=== PATIENT | female | born 1985 | race Caucasian/White ===

== ENCOUNTER 2021-04-15 11:55 | Outpatient (RCR) | payer BC, SELFPAY ==
[2021-04-15 12:26] LABS: Basophils Percent Auto 0.3 % (0.2-1.2); Eosinophils Absolute Auto 0.2 K/mm3 (0-0.3); Eosinophils Percent Auto 1.7 % (0-4.4); Hematocrit 34.4 % (37.0-47.0); Hemoglobin 11.2 g/dL (12.0-15.0); Immature Granulocyte Absolute 0.03 K/mm3 (0.00-0.031); Immature Granulocyte Percent A 0.3 % (0-0.5); Lymphocytes Absolute Auto 2.01 K/mm3 (0.9-3.2); Lymphocytes Percent Auto 21.8 % (18.3-44.2); Mean Corpuscular HGB Conc 32.6 g/dl (32-36); Mean Corpuscular Hemoglobin 29.7 pg (26-34); Mean Corpuscular Volume 91.2 fl (80-100); Mean Platelet Volume 10.6 fl (7.4-10.4); Monocytes Absolute Auto 0.7 K/mm3 (0.1-0.6); Monocytes Percent Auto 7.3 % (2.6-8.5); Neutrophils Absolute Auto 6.3 K/mm3 (1.3-6.7); Neutrophils Percent Auto 68.6 % (45.5-73.1); Platelet Count Result 177 k/mm3 (150-375); Red Blood Count 3.77 M/mm3 (4.2-5.4); Red Cell Distribution Width 13.8 % (11.5-14.5); White Blood Count 9.2 K/mm3 (4.5-10.0)
[2021-04-15 13:30] LABS: HIV 1/2 Ab P24 Ag Result Negative (Negative)
[2021-04-15] MEDS: RHO(D) IMMUNE GLOBULIN 300 MCG/2 ML SYRINGE IM (14:39)
[2021-04-16 06:26] LABS: Rapid Plasma Reagin Non-Reactive (NonReactive)
== END 2021-07-14 23:59 | disposition home or self-care (01) ==
LOC: ANHLAB 11:55
PROVIDERS: Visit Provider Obstetrics & Gynecology
DX: Z11.4 Encounter for screening for human immunodeficiency virus [HIV] (principal); Z29.13 Encounter for prophylactic Rho(D) immune globulin; O36.0190 Maternal care for anti-D [Rh] antibodies, unspecified trimester, not applicable or unspecified; Z3A.00 Weeks of gestation of pregnancy not specified
CPT/HCPCS: 36415; 83036; 85025; 85461; 86592; 86703; 90384; 96372; G0432; J2790

== ENCOUNTER 2021-05-08 13:59 | Observation (INO) | payer BC, SELFPAY ==
[2021-05-08] VITALS (28 sets, daily range): BP systolic 62–142; BP diastolic 44–83; PULSE 66–104; RESP 16; TEMP 36.2–36.8; BMI 30.4
--- NOTE | ~2021-05-08 | US_ITS ---
EXAMINATION: US OB follow up DATE: 05/09/2021 07:36 INDICATION: labor, third trimester TECHNIQUE: Real-time ultrasound of the pelvis was performed. The interpreting radiologist was not pre sent for the study. COMPARISON: None. FINDINGS: There is a single living fetus in vertex presentation. The placenta is posterior/fundal. Fe arun cardiac activity and movement are noted. heart rate is 135 beats per minute (bpm). Th e amniotic fluid index is 15.6 cm which is normal. The following biometric data were obtained: Biparietal diameter (BPD): 8.3 cm; head circumference (HC): 31.0 cm; abdominal circumference (AC): 31 .5 cm; femur length (FL): 6.6 cm. These measurements are concordant. Estimated weight is 2529 g +/- 379 g, which correlates with the >97th percentile when 07/01/2021 is used as estimated date of delivery. As single measurements, these parameters are each equal to the following estimated gestational ages w ith ranges of +/- 2 standard deviations: BPD: 33 weeks 4 days +/- 3 weeks 1 days. HC: 34 weeks 4 days +/- 3 weeks 0 days. AC: 35 weeks 3 days +/- 3 weeks 0 days. FL: 34 weeks 1 days +/- 3 weeks 0 days. estimated gestational age based solely on measurements from this exam is 34 weeks 3 days +/- 2 weeks 3 days. IMPRESSION: 1. Single living fetus in vertex presentation. 2. Estimated weight is 2529 g +/- 379 g, which correlates with the >97th percentile when 07/01/19 22 is used as estimated date of delivery. 3. Normal amniotic fluid index. Reviewed, dictated and finalized at location B. [employer] SERVICES ASSOCIATE IMPRESSION: 1. Single living fetus in vertex presentation. 2. Estimated weight is 2529 g +/- 379 g, which correlates with the >97th percentile when 07/01/2021 is used as estimated date of delivery. 3. Normal amniotic fluid index.
[2021-05-08] MEDS: LACTATED RINGERS 1,000 ML 125 ML IV CONT (14:40)
[2021-05-08] MEDS: MAGNESIUM SULF 4 GM/WATER100ML 4 GM/100 ML BAG IVPB (14:40)
--- NOTE | 2021-05-08 14:48 | OBADM ---
This patient, Sue Mtz, admitted to the OB room [facility] Post 116 for observation. Patient/family oriented to hospital policies and general routines including ID bracelet, bed and alarms, visiting hours, pain management, procedures, bathroom and other care routines, personal items, smoking policy, room service/diet, and visiting hours. Patient/Family are encouraged to report perceived risks to care and to ask questions if they do not understand what they are told or what they should do. Pt was seen in office by , SVE was 3cm. Orders received to start magnesium, give steroids, and recheck cervix in one hours.
[2021-05-08] MEDS: BETAMETHASONE SOD PHOS/ACETATE 30 MG/5 ML VIAL 12 MG IM (14:50)
[2021-05-08] MEDS: MAGNESIUM SULF 20GM/WATER500ML 500 ML 50 MG IV CONT (15:07)
--- NOTE | 2021-05-08 15:59 | PC.NURSE ---
3177- called,inquired about labs. Labor labs and Hgb A1C ordered. Fasting and 1hr post prandial BS's
--- NOTE | 2021-05-08 16:14 | PM.IMHP ---
H&P: HPI History of Present Illness Date/Time: 05/08/21 16:14 at 32+3 came in earlier today for NST due to type II DM and was noted to have 6 contractions in 1 hour, but she was not feeling any cramping. She then came to the office and was found to be 3 cm dilated. No bleeding, leaking fluid. Normal movement. She does have h/o spontaneous delivery at 34 weeks. Chief Complaint: labor Review of Systems Review of Systems: All systems reviewed & are unremarkable except as noted in HPI and below PMFSH Past Medical History Medical History Diabetes mellitus diet controlled Vaginal delivery x2 Surgical History Surgical History History of salpingo-oophorectomy 2006, left side Family History Family History Father Hypertension Mother Diabetes mellitus Hypertension Heart problem Grandparent Diabetes mellitus Hypertension Cerebrovascular accident Heart problem Social History Social History Smoking status: Current some day smoker Alcohol intake: former Substance use: never Meds Home Medications and Allergies Home Medications Medication Instructions Recorded Confirmed Type docosahexaenoic acid 200 mg capsule 200 mg PO DAILY 01/23/21 05/08/21 History metformin 500 mg tablet 500 mg PO DAILY #60 tablet 04/24/21 05/08/21 Rx Allergies Allergy/AdvReac Type Severity Reaction Status Date / Time No Known Allergies Allergy Verified 05/08/21 13:23 Vital Signs Vital Signs - 24 hr 05/08/21 14:11 05/08/21 14:16 05/08/21 14:39 Temperature 36.8 C Pulse Rate 104 H 98 85 Respiratory Rate 16 Blood Pressure 135/82 126/74 126/74 05/08/21 14:46 05/08/21 15:01 05/08/21 15:16 Temperature Pulse Rate 97 83 72 Respiratory Rate Blood Pressure 108/60 119/57 L 108/55 L 05/08/21 15:31 05/08/21 15:46 05/08/21 16:01 Temperature Pulse Rate 73 70 71 Respiratory Rate Blood Pressure 110/65 111/54 L 109/55 L Exam Const: General: healthy appearing, no acute distress, alert and awake Resp: Auscultation: clear to auscultation bilaterally Cardio: Rate: regular rate Rhythm: regular rhythm GI: Inspection: non-distended GI Palp: Yes Soft to palpation, No Tenderness to palpation present (GI) and Yes Other GI palpation findings present (gravid) : Manual OB Exam: dilated 3 cm, effaced 25%, station high and other (soft/posterior) Extrem: General: no pedal edema and no calf tenderness Psych: Mental Status: mental status grossly normal Assessment and Plan Assessment and plan (1) labor in third trimester: Code(s): O60.03 - labor without delivery, third trimester Status: Acute Assessment and Plan: Unsure if recent cervical change or not, so to L&D for minimum 24 hours observation to complete steroid course for lung maturity. Start magnesium for tocolysis and consider weaning overnight if contractions not frequent and no cervical change. She is aware if she progresses at all, transfer would be recommended. She would prefer going to [place] if needed since she delivered there before. Start antibiotics for unknwon GBS status and prematurity. status reassuring (2) Diabetes mellitus affecting in third trimester: Code(s): O24.913 - Unspecified diabetes mellitus in , third trimester Status: Acute Assessment and Plan: Metformin 500 mg daily in am started about 2 weeks ago, and blood sugars have been reasonably well controlled (145 or lower postprandial, fastings 80s-100). Sugar control may be more challenging with recent steroids so continue strict diabetic diet, check sugars fasting and 1 hour postprandial
[2021-05-08 16:21] LABS: Glucose Point of Care 174 mg/dl (65-105)
[2021-05-08 16:27] LABS: Basophils Percent Auto 0.3 % (0.2-1.2); Eosinophils Absolute Auto 0.2 K/mm3 (0-0.3); Eosinophils Percent Auto 1.4 % (0-4.4); Hematocrit 33.2 % (37.0-47.0); Hemoglobin 10.9 g/dL (12.0-15.0); Immature Granulocyte Absolute 0.03 K/mm3 (0.00-0.031); Immature Granulocyte Percent A 0.2 % (0-0.5); Lymphocytes Absolute Auto 2.19 K/mm3 (0.9-3.2); Mean Corpuscular HGB Conc 32.8 g/dl (32-36); Mean Corpuscular Hemoglobin 28.4 pg (26-34); Mean Corpuscular Volume 86.5 fl (80-100); Mean Platelet Volume 12.4 fl (7.4-10.4); Monocytes Absolute Auto 0.7 K/mm3 (0.1-0.6); Monocytes Percent Auto 5.4 % (2.6-8.5); Neutrophils Absolute Auto 9.1 K/mm3 (1.3-6.7); Neutrophils Percent Auto 74.7 % (45.5-73.1); Platelet Count Result 174 k/mm3 (150-375); Red Blood Count 3.84 M/mm3 (4.2-5.4); Red Cell Distribution Width 13.7 % (11.5-14.5); White Blood Count 12.2 K/mm3 (4.5-10.0)
--- NOTE | 2021-05-08 16:43 | PC.NURSE ---
called back with antibiotic orders for pt.
[2021-05-08] MEDS: AMPICILLIN 2 GM/NS 100 ML 2 GM/100 ML BAG IVPB (17:14)
[2021-05-08 18:43] LABS: Glucose Point of Care 231 mg/dl (65-105)
[2021-05-08 19:50] LABS: Glucose Point of Care 226 mg/dl (65-105)
[2021-05-08] MEDS: metFORMIN HCL 500 MG TABLET PO (20:16)
[2021-05-08 20:28] LABS: Magnesium 4.1 mg/dL (1.6-2.3)
--- NOTE | 2021-05-08 20:55 | PM.OBPNVD ---
OB - PN: Subj Subjective Date/time seen: 05/08/21 20:55 Called by nurse due to some increase ctx since she has taken over. Patient states not feeling ctx. Reviewed tracing ctx q 7-12, they increased over the past hour, and now spacing. The nurse thought the cervix exam was changing though this is her first exam of the patient. Patient's FS elevated over 200 which secondary to steroids. Metformin pm added. tracing Cat 1. Cervix 3/50/-3. Informed patient her exam is unchanged. Continue plan for Mg until completed steroids. If increase consider Procardia. Patient voiced understanding. OB - PN: Obj Data Labs CBC & Chem 7: 05/08/21 16:09 Labs: Laboratory Results - last 24 hr 05/08/21 05/08/21 05/08/21 16:09 16:09 16:10 WBC 12.2 H RBC 3.84 L Hgb 10.9 L Hct 33.2 L MCV 86.5 MCH 28.4 MCHC 32.8 RDW 13.7 Plt Count 174 MPV 12.4 H Immature Gran % (Auto) 0.2 Neut % (Auto) 74.7 H Lymph % (Auto) 18.0 L [place] % (Auto) 5.4 Eos % (Auto) 1.4 Baso % (Auto) 0.3 Lymph # (Auto) 2.19 [place] # (Auto) 0.7 H Eos # (Auto) 0.2 Baso # (Auto) 0.0 Abs Immat Gran (auto) 0.03 Absolute Neuts (auto) 9.1 H Absolute Nucleated RBC 0.0 Nucleated RBC % 0.0 POC Capillary Glucose 174 H Magnesium Blood Type O Negative Antibody Screen Positive Antibody Identification Passive Due to RH Imm Glob Antigen Identification Cancelled LIN, IgG Interpret Not Performed LIN, Poly Interpret Negative LIN, Complement Interp Not Performed 05/08/21 05/08/21 05/08/21 18:38 19:44 20:05 WBC RBC Hgb Hct MCV MCH MCHC RDW Plt Count MPV Immature Gran % (Auto) Neut % (Auto) Lymph % (Auto) [place] % (Auto) Eos % (Auto) Baso % (Auto) Lymph # (Auto) [place] # (Auto) Eos # (Auto) Baso # (Auto) Abs Immat Gran (auto) Absolute Neuts (auto) Absolute Nucleated RBC Nucleated RBC % POC Capillary Glucose 231 H 226 H Magnesium 4.1 H Blood Type Antibody Screen Antibody Identification Antigen Identification LIN, IgG Interpret LIN, Poly Interpret LIN, Complement Interp OB - PN A/P Time Spent With Patient Time: Total time spent is greater than 50% in coordination of care (as documented) at patient's floor/unit and/or counseling patient:
[2021-05-08] MEDS: AMPICILLIN 1 GM/NS 50 ML 1 GM/50 ML BAG IVPB (21:26)
[2021-05-08 21:33] LABS: Glucose Point of Care 235 mg/dl (65-105)
[2021-05-09] VITALS (8 sets, daily range): BP systolic 102–130; BP diastolic 56–67; PULSE 64–74; TEMP 36.4–37.2
[2021-05-09 00:14] LABS: Glucose Point of Care 171 mg/dl (65-105)
[2021-05-09] MEDS: NICOTINE (*PBKC) 7 MG PATCH 1 PATCH TRANSDERM (00:34)
[2021-05-09] MEDS: MAGNESIUM SULF 20GM/WATER500ML 500 ML 50 MG IV CONT ×2 (01:15→10:55)
[2021-05-09] MEDS: AMPICILLIN 1 GM/NS 50 ML 1 GM/50 ML BAG IVPB ×5 (01:52→17:06)
[2021-05-09] MEDS: LACTATED RINGERS 1,000 ML 125 ML IV CONT (05:38)
[2021-05-09 06:03] LABS: Magnesium 4.9 mg/dL (1.6-2.3)
[2021-05-09 06:22] LABS: Rapid Plasma Reagin Non-Reactive (NonReactive)
[2021-05-09 07:46] LABS: Glucose Point of Care 151 mg/dl (65-105)
[2021-05-09] MEDS: metFORMIN HCL 500 MG TABLET PO (08:27)
[2021-05-09 10:38] LABS: Glucose Point of Care 179 mg/dl (65-105)
--- NOTE | 2021-05-09 10:41 | PM.OBPNVD ---
OB - PN: Subj Subjective Date/time seen: 05/09/21 10:41 She denies complaints. Contractions seem less to her. No spotting. Sasser irreg ctx 5-6/hr mild. OB - PN: Obj Data Labs CBC & Chem 7: 05/08/21 16:09 Labs: Laboratory Results - last 24 hr 05/08/21 05/08/21 05/08/21 16:09 16:09 16:09 WBC 12.2 H RBC 3.84 L Hgb 10.9 L Hct 33.2 L MCV 86.5 MCH 28.4 MCHC 32.8 RDW 13.7 Plt Count 174 MPV 12.4 H Immature Gran % (Auto) 0.2 Neut % (Auto) 74.7 H Lymph % (Auto) 18.0 L [place] % (Auto) 5.4 Eos % (Auto) 1.4 Baso % (Auto) 0.3 Lymph # (Auto) 2.19 [place] # (Auto) 0.7 H Eos # (Auto) 0.2 Baso # (Auto) 0.0 Abs Immat Gran (auto) 0.03 Absolute Neuts (auto) 9.1 H Absolute Nucleated RBC 0.0 Nucleated RBC % 0.0 POC Capillary Glucose Magnesium RPR Non-reactive Blood Type O Negative Antibody Screen Positive Antibody Identification Passive Due to RH Imm Glob Antigen Identification Cancelled LIN, IgG Interpret Not Performed LIN, Poly Interpret Negative LIN, Complement Interp Not Performed 05/08/21 05/08/21 05/08/21 16:10 18:38 19:44 WBC RBC Hgb Hct MCV MCH MCHC RDW Plt Count MPV Immature Gran % (Auto) Neut % (Auto) Lymph % (Auto) [place] % (Auto) Eos % (Auto) Baso % (Auto) Lymph # (Auto) [place] # (Auto) Eos # (Auto) Baso # (Auto) Abs Immat Gran (auto) Absolute Neuts (auto) Absolute Nucleated RBC Nucleated RBC % POC Capillary Glucose 174 H 231 H 226 H Magnesium RPR Blood Type Antibody Screen Antibody Identification Antigen Identification LIN, IgG Interpret LIN, Poly Interpret LIN, Complement Interp 05/08/21 05/08/21 05/09/21 20:05 21:29 00:06 WBC RBC Hgb Hct MCV MCH MCHC RDW Plt Count MPV Immature Gran % (Auto) Neut % (Auto) Lymph % (Auto) [place] % (Auto) Eos % (Auto) Baso % (Auto) Lymph # (Auto) [place] # (Auto) Eos # (Auto) Baso # (Auto) Abs Immat Gran (auto) Absolute Neuts (auto) Absolute Nucleated RBC Nucleated RBC % POC Capillary Glucose 235 H 171 H Magnesium 4.1 H RPR Blood Type Antibody Screen Antibody Identification Antigen Identification LIN, IgG Interpret LIN, Poly Interpret LIN, Complement Interp 05/09/21 05/09/21 05/09/21 05:36 07:43 10:33 WBC RBC Hgb Hct MCV MCH MCHC RDW Plt Count MPV Immature Gran % (Auto) Neut % (Auto) Lymph % (Auto) [place] % (Auto) Eos % (Auto) Baso % (Auto) Lymph # (Auto) [place] # (Auto) Eos # (Auto) Baso # (Auto) Abs Immat Gran (auto) Absolute Neuts (auto) Absolute Nucleated RBC Nucleated RBC % POC Capillary Glucose 151 H 179 H Magnesium 4.9 H RPR Blood Type Antibody Screen Antibody Identification Antigen Identification LIN, IgG Interpret LIN, Poly Interpret LIN, Complement Interp OB - PN A/P Assessment and Plan (1) labor in third trimester: Code(s): O60.03 - labor without delivery, third trimester Status: Acute Assessment and Plan: No cervical change. Will continue with plan for Magnesium until second dose of steroids. Then discontinue. Will trial of procardia and if no cervical change then will allow discharge this pm. She wants to go home this evening. She is aware of her risk of delivery and labor precautions discussed. Mg level normal. (2) Diabetes mellitus affecting in third trimester: Code(s): O24.913 - Unspecified diabetes mellitus in , third trimester Status: Acute Assessment and Plan: Blood sugard increased as expected. Will continue the twice daily dosing of Metformin. Ultrasound results pending. Time Spent With Lamberto
[2021-05-09] MEDS: BETAMETHASONE SOD PHOS/ACETATE 30 MG/5 ML VIAL 12 MG IM (14:36)
[2021-05-09 14:53] LABS: Glucose Point of Care 154 mg/dl (65-105)
[2021-05-09] MEDS: DOCUSATE SODIUM 100 MG CAPSULE PO (17:06)
[2021-05-09 19:12] LABS: Glucose Point of Care 233 mg/dl (65-105)
--- NOTE | 2021-05-09 19:24 | PC.NURSE ---
1910- LM on vm to call hospital with Dr. Nolan 1912- Dr. Nolan returned call- updated on pt status. FHT reviewed. latest blood sugar reviewed- 233. order to d/c pt home on pelvic rest, pre-term labor precautions, pt to call and make appt with Dr. Geiger for next week.
== END 2021-05-09 19:37 | disposition home or self-care (01) ==
PROVIDERS: Admitting Provider Obstetrics & Gynecology; Visit Provider Obstetrics & Gynecology
DX: O60.03 Preterm labor without delivery, third trimester (principal); O24.410 Gestational diabetes mellitus in pregnancy, diet controlled; Z3A.32 32 weeks gestation of pregnancy
CPT/HCPCS: 36415; 76816; 82948; 83735; 85025; 86592; 86850; 86880; 86900; 86901; 86902; 96361; 96365; 96366; 96367; 96372; 96376; A9270; G0378; G0379; J0290; J0702; J3475; J7120

== ENCOUNTER 2021-05-15 10:11 | Outpatient (CLI) | payer BC, SELFPAY ==
[2021-05-15 10:51] LABS: Hematocrit 32.9 % (37.0-47.0); Hemoglobin 10.4 g/dL (12.0-15.0); Mean Corpuscular HGB Conc 31.6 g/dl (32-36); Mean Corpuscular Volume 85.5 fl (80-100); Mean Platelet Volume 12.6 fl (7.4-10.4); Platelet Count Result 134 k/mm3 (150-375); Red Blood Count 3.85 M/mm3 (4.2-5.4); Red Cell Distribution Width 13.6 % (11.5-14.5); White Blood Count 11.3 K/mm3 (4.5-10.0)
[2021-05-15 11:00] LABS: Alanine Aminotransferase 10 U/L (4-35); Albumin Level 3.4 g/dL (3.5-5.1); Alkaline Phosphatase 113 U/L (38-126); Anion Gap 4 mmol/L (8-16); Aspartate Amino Transferase 16 U/L (14-36); Bilirubin,Total 0.3 mg/dL (0.2-1.3); Blood Urea Nitrogen 7 mg/dL (7-17); Calcium 8.9 mg/dL (8.4-10.2); Carbon Dioxide 24 mmol/L (22-30); Chloride 106 mmol/L (98-107); Estimated Glomerular Filt Rate > 60; Glucose 102 mg/dL (65-110); Potassium 4.4 mmol/L (3.4-5.0); Sodium 134 mmol/L (137-145); Uric Acid 3.7 mg/dL (2.5-7.5)
[2021-05-15 13:35] LABS: Collection Time Urine 24 HOURS
[2021-05-15 13:44] LABS: Creatinine Urine 88.9 mg/dL; Patient Weight 150 Lbs; Total Protein Urine Random 59 mg/dL
[2021-05-15 16:09] LABS: Creatinine Clearance Urine 174.2 ml/min (75-125); Total Protein Urine 24 Hr 973 mg/24hr (28-141); Total Volume 24 Hour Urine 1650 ml
== END 2021-05-15 10:12 | disposition home or self-care (01) ==
LOC: ANHLAB 10:14
PROVIDERS: Visit Provider Obstetrics & Gynecology
DX: O13.9 Gestational [pregnancy-induced] hypertension without significant proteinuria, unspecified trimester (principal); R80.9 Proteinuria, unspecified; Z3A.00 Weeks of gestation of pregnancy not specified
CPT/HCPCS: 36415; 80053; 81050; 82575; 84156; 84550; 85027

== ENCOUNTER 2021-05-15 12:45 | Observation (INO) | payer BC, SELFPAY ==
[2021-05-15] MEDS: NIFEdipine 10 MG CAPSULE PO (13:14)
[2021-05-15 15:15] VITALS: BMI 31.8
--- NOTE | 2021-05-20 13:21 | PM.OBTRLD ---
OB - Triage/Final Diagnosis Visit Information Comments/Additional reasons for admission: I have assessed the risk for this patient, Sue Mtz, and determined that she would benefit from observation care. Final Diagnosis (1) labor: Code(s): O60.00 - labor without delivery, unspecified trimester Status: Acute
== END 2021-05-15 16:20 | disposition home or self-care (01) ==
PROVIDERS: Admitting Provider Obstetrics & Gynecology; Visit Provider Obstetrics & Gynecology
DX: O60.03 Preterm labor without delivery, third trimester (principal); Z3A.33 33 weeks gestation of pregnancy
CPT/HCPCS: 36415; 80053; 81050; 82575; 84156; 84550; 85027; A9270; G0378; G0379

== ENCOUNTER 2021-05-16 19:31 | Observation (INO) | payer BC, SELFPAY ==
--- NOTE | ~2021-05-16 | US_ITS ---
EXAMINATION: US OB BPP wo non-stress DATE: 05/17/2021 07:34 INDICATION: Vaginal bleeding. Third trimester. TECHNIQUE: Real-time pelvic ultrasound was performed. COMPARISON: Ultrasound 05/09/2021 FINDINGS: There is a single living fetus in vertex presentation. The placenta is posterior. The visualized por tions of the placenta are normal. heart rate is 152 beats per minute (bpm). The amniotic fluid volume is subjectively normal. Biophysical profile performed by the technologist: breathing (30 sec sustained breathing in 30 minutes): 2 out of 2 movement (3 gross body movements in 30 minutes): 2 out of 2 tone (one episode of juoeafp-toqaawcfb-actzivd limb movement): 2 out of 2 Amniotic fluid pocket (2 cm): 2 out of 2 Total score: 8 out of 8 IMPRESSION: 1. Single living fetus in vertex presentation. 2. Biophysical profile 8 out of 8. Reviewed, dictated and finalized at location A. A OPERATOR
[2021-05-16 19:52] VITALS: BP 146/70; PULSE 65
[2021-05-16 20:00] VITALS: BP 141/73; PULSE 68
[2021-05-16 20:19] VITALS: TEMP 37.1
[2021-05-16 20:29] VITALS: BP 131/64; PULSE 57
[2021-05-16 20:30] VITALS: BP 127/69; PULSE 58
[2021-05-16 20:59] LABS: Glucose Point of Care 71 mg/dl (65-105)
[2021-05-16 22:05] LABS: Glucose Point of Care 97 mg/dl (65-105)
[2021-05-17] VITALS (38 sets, daily range): BP systolic 108–152; BP diastolic 57–79; PULSE 54–102; RESP 18; TEMP 36.6–37; O2SAT 94–100; BMI 32.0
[2021-05-17] MEDS: NIFEdipine 10 MG CAPSULE PO ×2 (00:12→04:21)
--- NOTE | 2021-05-17 03:13 | OBADM ---
This patient, Sue Mtz, admitted to the OB room [facility] for observation. Patient/family oriented to hospital policies and general routines including ID bracelet, bed and alarms, visiting hours, pain management, procedures, bathroom and other care routines, personal items, smoking policy, room service/diet, and visiting hours. Patient/Family are encouraged to report perceived risks to care and to ask questions if they do not understand what they are told or what they should do.
[2021-05-17] MEDS: ACETAMINOPHEN 500 MG TABLET 1000 MG PO (04:54)
[2021-05-17 06:58] LABS: Glucose Point of Care 81 mg/dl (65-105)
[2021-05-17] MEDS: MAGNESIUM SULF 4 GM/WATER100ML 4 GM/100 ML BAG IVPB (09:04)
[2021-05-17] MEDS: LACTATED RINGERS 1,000 ML 75 ML IV CONT (09:05)
--- NOTE | 2021-05-17 09:10 | PM.IMHP ---
H&P: HPI History of Present Illness Date/Time: 05/17/21 09:10 Patient is a 36yo currently 33w4d who presented to L&D last night with complaints of vaginal bleeding and diarrhea. Reported saturation of regular size pad. Bleeding slowed down after arrival to L&D. Patient reports persistent contractions as well, however, unchanged. She has been jerome for past week. She was admitted one week ago for management of possible labor. She received magnesium sulfate and celestone x 2 doses. Cervical exam was approx. 3 cm dilated at time of discharge last week. She was noted to be 4cm dilated during office visit a few days ago. Patient reports increasing headaches. Denies any leakage of fluid. Reports good movement. Patient has a history of labor and delivery at 34 weeks. She also has a history of pregestational Type 2 DM. She takes Metformin daily, however, does not monitor fingersticks consistently. While on L&D overnight, patient was noted to be jerome. She received Procardia 10mg x 2 doses after which contractions spaced out, however, are still occurring intermittently. Bleeding subsided and patient reports minimal amount of dark brown discharge this morning. However, during exam this morning a moderate sized approx. 10cc dark reddish-brown gelatinous clot was evacuated from vagina. EFM overnight showed moderate variability with intermittent periods of minimal variability. Few accelerations were noted, however, no definitive decelerations were noted. Tracing did not meet reactive criteria. A BPP was obtained this morning as soon as possible and was 8/8. When EFM restarted after returning from radiology, a few late decelerations were noted as well as tachycardia to 170s. Decision made to transfer patient for escalating care in the setting of labor and possible abruption. Fasting FS this AM was 81. Two hour postprandial measurement was 165. Chief Complaint: labor Vaginal bleeding Review of Systems Review of Systems: All systems reviewed & are unremarkable except as noted in HPI and below Constitutional: Constitutional: Reports as per HPI, Reports no additional constitutional complaints, Denies chills, Denies fever(s), Denies headache(s) and Denies night sweats Eyes: Eyes: Reports as per HPI and Reports no additional eye complaints ENT: Reports system reviewed and no additional complaints, except as documented, Reports as per HPI, Reports Normal hearing present and Denies headache(s) Cardiovascular: Cardiovascular: Reports as per HPI, Reports no additional cardiovascular complaints, Denies chest pain and Denies dyspnea Respiratory: Respiratory: Reports as per HPI, Reports no additional respiratory complaints, Denies cough and Denies dyspnea Gastrointestinal: Gastrointestinal: Reports as per HPI, Reports no additional gastrointestinal complaints, Denies abdominal pain, Denies change in bowel habits, Denies change in stool character, Denies nausea and Denies vomiting Genitourinary: Genitourinary: Reports no additional female genitourinary complaints, Reports as per HPI, Reports abnormal vaginal bleeding, Denies genital lesions, Denies hot flashes, Denies dyspareunia, Denies pelvic pain, Denies sexual dysfunction, Denies urinary incontinence, Denies vaginal discharge, Denies vaginal dryness and Denies vaginal odor Musculoskeletal: Musculoskeletal: Reports no additional musculoskeletal complaints and Reports as per HPI Integumentary/Breasts: Skin/Breast: Reports system reviewed and no additional complaints, except as docu, Reports as per HPI, Denies breast pain and Denies nipple discharge Neurologic: Reports system reviewed and no additional complaints, except as documented, Reports as per HPI, Reports Normal hearing present and Denies headache(s) Psychiatric: Psychiatric: Reports no additional psychiatric complaints, Reports as per HPI, Denies anxiety and Denies depression Endocrine: Endocrine: Reports no additio
[2021-05-17 09:22] LABS: Glucose Point of Care 165 mg/dl (65-105)
[2021-05-17] MEDS: metFORMIN HCL 500 MG TABLET 1000 MG PO (09:22)
[2021-05-17 09:25] LABS: Basophils Percent Auto 0.2 % (0.2-1.2); Eosinophils Absolute Auto 0.1 K/mm3 (0-0.3); Eosinophils Percent Auto 1.2 % (0-4.4); Hematocrit 28.5 % (37.0-47.0); Hemoglobin 9.3 g/dL (12.0-15.0); Immature Granulocyte Absolute 0.03 K/mm3 (0.00-0.031); Immature Granulocyte Percent A 0.4 % (0-0.5); Lymphocytes Absolute Auto 1.71 K/mm3 (0.9-3.2); Lymphocytes Percent Auto 20.6 % (18.3-44.2); Mean Corpuscular HGB Conc 32.6 g/dl (32-36); Mean Corpuscular Hemoglobin 28.1 pg (26-34); Mean Corpuscular Volume 86.1 fl (80-100); Mean Platelet Volume 12.2 fl (7.4-10.4); Monocytes Absolute Auto 0.5 K/mm3 (0.1-0.6); Monocytes Percent Auto 5.8 % (2.6-8.5); Neutrophils Percent Auto 71.8 % (45.5-73.1); Platelet Count Result 109 k/mm3 (150-375); Red Blood Count 3.31 M/mm3 (4.2-5.4); Red Cell Distribution Width 13.6 % (11.5-14.5); White Blood Count 8.3 K/mm3 (4.5-10.0)
[2021-05-17 09:34] LABS: INR 0.8; Prothrombin Time 11.4 Seconds (11.1-14.7)
[2021-05-17 09:35] LABS: Partial Thromboplastin Time 26.6 SECONDS (22.3-36.8)
[2021-05-17] MEDS: MAGNESIUM SULF 20GM/WATER500ML 500 ML 50 MG IV CONT (09:36)
[2021-05-17 09:38] LABS: D Dimer 1.04 ug/mL (<0.48)
[2021-05-17 09:40] LABS: Fibrinogen 255 mg/dl (215-510)
--- NOTE | 2021-05-17 10:05 | P.PNOB_ITS ---
OB - PN: Subj Subjective Date/time seen: 05/17/21 10:[address] Mcnair MFM with [facility] regarding transferring patient with diagnosis of PTL, suspect abruption. The deceleratons have resolve. Discussed the abruption labs. Cat 2, tracing, mg started. Discussed with him that I feel the patient is clinically stable for transport. She is not actively bleeding. I have discussed the patient with Dr. Roa, staff mortgage assistant and she would rather the patient be transferred for NICU support. OB - PN: Obj Data Labs CBC & Chem 7: 05/17/21 09:06 Labs: Laboratory Results - last 24 hr 05/16/21 05/16/21 05/17/21 20:57 21:56 06:55 WBC RBC Hgb Hct MCV MCH MCHC RDW Plt Count MPV Immature Gran % (Auto) Neut % (Auto) Lymph % (Auto) [place] % (Auto) Eos % (Auto) Baso % (Auto) Lymph # (Auto) [place] # (Auto) Eos # (Auto) Baso # (Auto) Abs Immat Gran (auto) Absolute Neuts (auto) Absolute Nucleated RBC Nucleated RBC % PT INR APTT Fibrinogen D-Dimer POC Capillary Glucose 71 97 81 05/17/21 05/17/21 05/17/21 09:06 09:06 09:18 WBC 8.3 RBC 3.31 L Hgb 9.3 L Hct 28.5 L MCV 86.1 MCH 28.1 MCHC 32.6 RDW 13.6 Plt Count 109 L MPV 12.2 H Immature Gran % (Auto) 0.4 Neut % (Auto) 71.8 Lymph % (Auto) 20.6 [place] % (Auto) 5.8 Eos % (Auto) 1.2 Baso % (Auto) 0.2 Lymph # (Auto) 1.71 [place] # (Auto) 0.5 Eos # (Auto) 0.1 Baso # (Auto) 0.0 Abs Immat Gran (auto) 0.03 Absolute Neuts (auto) 6.0 Absolute Nucleated RBC 0.0 Nucleated RBC % 0.0 PT 11.4 INR 0.8 APTT 26.6 Fibrinogen 255 D-Dimer 1.04 H POC Capillary Glucose 165 H Imaging Radiologist's impression: Impressions Obstetrics US/Biophysical Profile 05/17/21 07:52 IMPRESSION: 1. Single living fetus in vertex presentation. 2. Biophysical profile 8 out of 8. OB - PN A/P Time Spent With Patient Time: Total time spent is greater than 50% in coordination of care (as documented) at patient's floor/unit and/or counseling patient:
--- NOTE | 2021-05-17 10:41 | PM.OBPNVD ---
OB - PN: Subj Subjective Date/time seen: 05/17/21 10:41 I explained to her the diagnosis of labor and abruption and explained that the router operator radial feels that baby would benefit from being delivered in a tertiary facility for NICU support. She understands that she will most likely be delivered when she gets to [facility]. She was informed of risk of distress with her and or baby at any time when there is an abruption,and risk of delivery between getting from one facility to another. tracing currently does not show distress. She is aware of benefit of NICU support and risk and agrees to being transferred. She will go via helicopter. OB - PN: Obj Data Labs CBC & Chem 7: 05/17/21 09:06 Labs: Laboratory Results - last 24 hr 05/16/21 05/16/21 05/17/21 20:57 21:56 06:55 WBC RBC Hgb Hct MCV MCH MCHC RDW Plt Count MPV Immature Gran % (Auto) Neut % (Auto) Lymph % (Auto) [place] % (Auto) Eos % (Auto) Baso % (Auto) Lymph # (Auto) [place] # (Auto) Eos # (Auto) Baso # (Auto) Abs Immat Gran (auto) Absolute Neuts (auto) Absolute Nucleated RBC Nucleated RBC % PT INR APTT Fibrinogen D-Dimer POC Capillary Glucose 71 97 81 Blood Type Antibody Screen KB Hemoglobin 05/17/21 05/17/21 05/17/21 09:06 09:06 09:07 WBC 8.3 RBC 3.31 L Hgb 9.3 L Hct 28.5 L MCV 86.1 MCH 28.1 MCHC 32.6 RDW 13.6 Plt Count 109 L MPV 12.2 H Immature Gran % (Auto) 0.4 Neut % (Auto) 71.8 Lymph % (Auto) 20.6 [place] % (Auto) 5.8 Eos % (Auto) 1.2 Baso % (Auto) 0.2 Lymph # (Auto) 1.71 [place] # (Auto) 0.5 Eos # (Auto) 0.1 Baso # (Auto) 0.0 Abs Immat Gran (auto) 0.03 Absolute Neuts (auto) 6.0 Absolute Nucleated RBC 0.0 Nucleated RBC % 0.0 PT 11.4 INR 0.8 APTT 26.6 Fibrinogen 255 D-Dimer 1.04 H POC Capillary Glucose Blood Type Antibody Screen KB Hemoglobin Negative 05/17/21 05/17/21 09:10 09:18 WBC RBC Hgb Hct MCV MCH MCHC RDW Plt Count MPV Immature Gran % (Auto) Neut % (Auto) Lymph % (Auto) [place] % (Auto) Eos % (Auto) Baso % (Auto) Lymph # (Auto) [place] # (Auto) Eos # (Auto) Baso # (Auto) Abs Immat Gran (auto) Absolute Neuts (auto) Absolute Nucleated RBC Nucleated RBC % PT INR APTT Fibrinogen D-Dimer POC Capillary Glucose 165 H Blood Type O Negative Antibody Screen Positive KB Hemoglobin Imaging Radiologist's impression: Impressions Obstetrics US/Biophysical Profile 05/17/21 07:52 IMPRESSION: 1. Single living fetus in vertex presentation. 2. Biophysical profile 8 out of 8. OB - PN A/P Time Spent With Patient Time: Total time spent is greater than 50% in coordination of care (as documented) at patient's floor/unit and/or counseling patient:
--- NOTE | 2021-05-20 08:14 | PM.OBTRLD ---
OB - Triage/Final Diagnosis Visit Information Comments/Additional reasons for admission: I have assessed the risk for this patient, Sue Mtz, and determined that she would benefit from observation care. Evaluation Laboratory results: Laboratory Tests 05/16/21 05/16/21 05/17/21 20:57 21:56 06:55 WBC RBC Hgb Hct MCV MCH MCHC RDW Plt Count MPV Immature Gran % (Auto) Neut % (Auto) Lymph % (Auto) Hutchinson % (Auto) Eos % (Auto) Baso % (Auto) Lymph # (Auto) [place] # (Auto) Eos # (Auto) Baso # (Auto) Abs Immat Gran (auto) Absolute Neuts (auto) Absolute Nucleated RBC Nucleated RBC % PT INR APTT Fibrinogen D-Dimer POC Capillary Glucose 71 97 81 Blood Type Antibody Screen Antibody Identification Antigen Identification LIN, IgG Interpret LIN, Poly Interpret LIN, Complement Interp KB Hemoglobin 05/17/21 05/17/21 05/17/21 09:06 09:06 09:07 WBC 8.3 RBC 3.31 L Hgb 9.3 L Hct 28.5 L MCV 86.1 MCH 28.1 MCHC 32.6 RDW 13.6 Plt Count 109 L MPV 12.2 H Immature Gran % (Auto) 0.4 Neut % (Auto) 71.8 Lymph % (Auto) 20.6 Hutchinson % (Auto) 5.8 Eos % (Auto) 1.2 Baso % (Auto) 0.2 Lymph # (Auto) 1.71 Hutchinson # (Auto) 0.5 Eos # (Auto) 0.1 Baso # (Auto) 0.0 Abs Immat Gran (auto) 0.03 Absolute Neuts (auto) 6.0 Absolute Nucleated RBC 0.0 Nucleated RBC % 0.0 PT 11.4 INR 0.8 APTT 26.6 Fibrinogen 255 D-Dimer 1.04 H POC Capillary Glucose Blood Type Antibody Screen Antibody Identification Antigen Identification LIN, IgG Interpret LIN, Poly Interpret LIN, Complement Interp KB Hemoglobin Negative 05/17/21 05/17/21 09:10 09:18 WBC RBC Hgb Hct MCV MCH MCHC RDW Plt Count MPV Immature Gran % (Auto) Neut % (Auto) Lymph % (Auto) Hutchinson % (Auto) Eos % (Auto) Baso % (Auto) Lymph # (Auto) Hutchinson # (Auto) Eos # (Auto) Baso # (Auto) Abs Immat Gran (auto) Absolute Neuts (auto) Absolute Nucleated RBC Nucleated RBC % PT INR APTT Fibrinogen D-Dimer POC Capillary Glucose 165 H Blood Type O Negative Antibody Screen Positive Antibody Identification Passive Due to RH Imm Glob Antigen Identification Cancelled LIN, IgG Interpret Not Performed LIN, Poly Interpret Negative LIN, Complement Interp Not Performed KB Hemoglobin Final Diagnosis (1) labor: Code(s): O60.00 - labor without delivery, unspecified trimester Status: Acute
== END 2021-05-17 11:00 | disposition short-term general hospital (02) ==
PROVIDERS: Obstetrics & Gynecology; Admitting Provider Student in an Organized Health Care Education/Training Program; Visit Provider Obstetrics & Gynecology
DX: O60.03 Preterm labor without delivery, third trimester (principal); O46.93 Antepartum hemorrhage, unspecified, third trimester; Z3A.33 33 weeks gestation of pregnancy; O24.415 Gestational diabetes mellitus in pregnancy, controlled by oral hypoglycemic drugs; O36.8330 Maternal care for abnormalities of the fetal heart rate or rhythm, third trimester, not applicable or unspecified; O99.333 Smoking (tobacco) complicating pregnancy, third trimester; F17.200 Nicotine dependence, unspecified, uncomplicated
CPT/HCPCS: 36415; 76819; 82948; 85025; 85380; 85384; 85460; 85610; 85730; 86850; 86880; 86900; 86901; 96365; 96366; A9270; G0378; G0379; J3475; J7120

== ENCOUNTER 2021-05-29 09:10 | Outpatient (RCR) | payer BC, SELFPAY ==
[2021-05-08 13:21] VITALS: BP 122/78; PULSE 80
--- NOTE | 2021-05-15 12:45 | PC.NURSE ---
Called Dr. Geiger to inform her of contractions noted on tracing. Variable decelerations noted on tracing with decreased variability occasionally, but otherwise reactive. Orders received. See observation V#[id number] for NST charting.
[2021-05-22 08:58] VITALS: BP 126/64; PULSE 56
--- NOTE | ~2021-05-29 | US_ITS ---
EXAMINATION: US OB limited w BPP EXAM DATE: 05/29/2021 10:31 INDICATION: ANTONY and BPP, GDM and Pre eclampsia GDM. 3rd trimester. TECHNIQUE: Pelvic obstetrical transabdominal sonogram was performed by a technologist. There are mu ltiple grayscale and Doppler images available for interpretation. Comparison is made to prior examina tion from 05/17/2021. FINDINGS: There is a single fetus identified in vertex presentation with a heart rate of 145 beats pe r minute. The placenta is located in the fundal position. There is no sonographic evidence of retrop lacental hemorrhage identified. The amniotic fluid index is 14.8 centimeters, which is normal. BIOPHYSICAL PROFILE (performed by the technologist) breathing (30 sec sustained breathing in 30 minutes): 2 out of 2 movement (3 gross body movements in 30 minutes): 2 out of 2 tone (one episode of zoldvvj-ojfydahie-wsignkw limb movement): 2 out of 2 Amniotic fluid pocket (2 cm): 2 out of 2 Total score: 8 out of 8 IMPRESSION: 1. Single fetus with heart rate of 145 bpm. 2. Normal biophysical profile score of 8 out of 8. 3. Normal ANTONY 14.8 cm. Reviewed, dictated and finalized at location A. [employer]LE [employer]IC
[2021-05-29 11:14] VITALS: BP 138/83; PULSE 89
== END 2021-06-27 13:17 | disposition home or self-care (01) ==
LOC: ANHOBOP 09:10
PROVIDERS: Visit Provider Obstetrics & Gynecology
DX: O24.419 Gestational diabetes mellitus in pregnancy, unspecified control (principal); Z3A.32 32 weeks gestation of pregnancy; O14.93 Unspecified pre-eclampsia, third trimester; Z3A.34 34 weeks gestation of pregnancy; Z3A.35 35 weeks gestation of pregnancy
CPT/HCPCS: 59025; 76815; 76819

== ENCOUNTER 2021-06-02 04:06 | Inpatient (IN) | payer BC, SELFPAY ==
[2021-06-02] VITALS (47 sets, daily range): BP systolic 107–158; BP diastolic 56–85; PULSE 55–100; RESP 18; TEMP 36.6–37; O2SAT 98–100; BMI 31.2
[2021-06-02 04:49] LABS: Glucose Point of Care 178 mg/dl (65-105)
[2021-06-02] MEDS: LACTATED RINGERS 1,000 ML 125 ML IV CONT (04:53)
[2021-06-02] MEDS: AMPICILLIN 2 GM/NS 100 ML 2 GM/100 ML BAG IVPB (04:54)
[2021-06-02 05:15] LABS: Basophils Percent Auto 0.2 % (0.2-1.2); Eosinophils Absolute Auto 0.2 K/mm3 (0-0.3); Eosinophils Percent Auto 1.7 % (0-4.4); Hematocrit 34.4 % (37.0-47.0); Hemoglobin 10.9 g/dL (12.0-15.0); Immature Granulocyte Absolute 0.04 K/mm3 (0.00-0.031); Immature Granulocyte Percent A 0.4 % (0-0.5); Lymphocytes Absolute Auto 1.55 K/mm3 (0.9-3.2); Lymphocytes Percent Auto 14.2 % (18.3-44.2); Mean Corpuscular HGB Conc 31.7 g/dl (32-36); Mean Corpuscular Hemoglobin 26.3 pg (26-34); Mean Corpuscular Volume 82.9 fl (80-100); Mean Platelet Volume 12.2 fl (7.4-10.4); Monocytes Absolute Auto 0.7 K/mm3 (0.1-0.6); Monocytes Percent Auto 6.5 % (2.6-8.5); Neutrophils Absolute Auto 8.4 K/mm3 (1.3-6.7); Platelet Count Result 155 k/mm3 (150-375); Red Blood Count 4.15 M/mm3 (4.2-5.4); Red Cell Distribution Width 14.1 % (11.5-14.5); White Blood Count 10.9 K/mm3 (4.5-10.0)
[2021-06-02 05:34] LABS: Alanine Aminotransferase 11 U/L (4-35); Albumin Level 3.6 g/dL (3.5-5.1); Alkaline Phosphatase 166 U/L (38-126); Anion Gap 8 mmol/L (8-16); Aspartate Amino Transferase 17 U/L (14-36); Bilirubin,Total 0.3 mg/dL (0.2-1.3); Blood Urea Nitrogen 7 mg/dL (7-17); Calcium 9.1 mg/dL (8.4-10.2); Carbon Dioxide 20 mmol/L (22-30); Chloride 102 mmol/L (98-107); Estimated Glomerular Filt Rate > 60; Glucose 189 mg/dL (65-110); Potassium 3.9 mmol/L (3.4-5.0); Sodium 130 mmol/L (137-145); Uric Acid 3.3 mg/dL (2.5-7.5)
[2021-06-02 05:43] LABS: Amphetamine Screen Urine Negative (Negative); Barbiturate Screen Urine Negative (Negative); Benzodiazepines Screen Urine Negative (Negative); Cannabinoid Screen Urine Negative (Negative); Cocaine Screen Urine Negative (Negative); Methadone Screen Urine Negative (Negative); Opiate Screen Urine Negative (Negative); Phencyclidine Screen Urine Negative (Negative)
[2021-06-02] MEDS: DEXTROSE 5%/LACTATED RINGERS 1,000 ML 125 ML IV CONT (06:08)
[2021-06-02] MEDS: INSULIN HUMAN REGULAR (*BKC) 100 UNITS in SODIUM CHLORIDE 0.9% IV 99 ML IV CONT (06:10)
--- NOTE | 2021-06-02 06:11 | WPDANESEPPF ---
Anes - Initial Pre Proc Eval Procedure: labor epidural Date/Time: 06/02/21 06:11 Surgeon: Jovana Geiger MD Pre Op Diagnosis: labor pain Pre Op Diagnosis: Contractions Patient Data Age: 36 Gender: F Height: 1.55 m Weight: 75 kg Last Vital Signs Pulse 84 06/02/21 06:10 BP 113/64 06/02/21 06:10 Pulse Ox 100 06/02/21 06:07 Allergies Allergy/AdvReac Type Severity Reaction Status Date / Time No Known Allergies Allergy Verified 05/28/21 10:33 Home Medications Medication Instructions Recorded Confirmed Type docosahexaenoic acid 200 mg capsule 200 mg PO DAILY 01/23/21 06/02/21 History nifedipine 10 mg PO Q4H PRN #30 cap 05/15/21 06/02/21 Rx metformin 1,000 mg PO DAILY 05/17/21 06/02/21 History Laboratory Tests 06/02/21 06/02/21 06/02/21 04:38 04:46 04:46 WBC 10.9 K/mm3 H K/mm3 (4.5-10.0) RBC 4.15 M/mm3 L M/mm3 (4.2-5.4) Hgb 10.9 g/dL L g/dL (12.0-15.0) Hct 34.4 % L % (37.0-47.0) MCV 82.9 fl fl (80-100) MCH 26.3 pg pg (26-34) MCHC 31.7 g/dl L g/dl (32-36) RDW 14.1 % % (11.5-14.5) Plt Count 155 k/mm3 k/mm3 (150-375) MPV 12.2 fl H fl (7.4-10.4) Immature Gran % (Auto) 0.4 % % (0-0.5) Neut % (Auto) 77.0 % H % (45.5-73.1) Lymph % (Auto) 14.2 % L % (18.3-44.2) Becker % (Auto) 6.5 % % (2.6-8.5) Eos % (Auto) 1.7 % % (0-4.4) Baso % (Auto) 0.2 % % (0.2-1.2) Lymph # (Auto) 1.55 K/mm3 K/mm3 (0.9-3.2) Becker # (Auto) 0.7 K/mm3 H K/mm3 (0.1-0.6) Eos # (Auto) 0.2 K/mm3 K/mm3 (0-0.3) Baso # (Auto) 0.0 K/mm3 K/mm3 (0.0-0.1) Abs Immat Gran (auto) 0.04 K/mm3 H K/mm3 (0.00-0.031) Absolute Neuts (auto) 8.4 K/mm3 H K/mm3 (1.3-6.7) Absolute Nucleated RBC 0.0 K/mm3 K/mm3 (0.0-0.012) Nucleated RBC % 0.0 % % (0.0-0.2) Sodium Potassium Chloride Carbon Dioxide Anion Gap BUN Creatinine Estim Creat Clear Calc Estimated GFR Glucose POC Capillary Glucose 178 mg/dl H mg/dl (65-105) Uric Acid Calcium Total Bilirubin AST ALT Alkaline Phosphatase Total Protein Albumin Urine Opiates Screen Urine Methadone Screen Ur Barbiturates Screen Ur Phencyclidine Scrn Ur Amphetamine Screen U Benzodiazepines Scrn Urine Cocaine Screen U Cannabinoids Screen RPR Pending 06/02/21 06/02/21 05:10 05:11 WBC RBC Hgb Hct MCV MCH MCHC RDW Plt Count MPV Immature Gran % (Auto) Neut % (Auto) Lymph % (Auto) Becker % (Auto) Eos % (Auto) Baso % (Auto) Lymph # (Auto) Becker # (Auto) Eos # (Auto) Baso # (Auto) Abs Immat Gran (auto) Absolute Neuts (auto) Absolute Nucleated RBC Nucleated RBC % Sodium 130 mmol/L L mmol/L (137-145) Potassium 3.9 mmol/L mmol/L (3.4-5.0) Chloride 102 mmol/L mmol/L (98-107) Carbon Dioxide 20 mmol/L L mmol/L (22-30) Anion Gap 8 mmol/L mmol/L (8-16) BUN 7 mg/dL mg/dL (7-17) Creatinine 0.50 mg/dL L mg/dL (0.7-1.0) Estim Creat Clear Calc Not Reportable Estimated GFR > 60 (59 - ) Glucose 189 mg/dL H mg/dL (65-110) POC Capillary Glucose Uric Acid 3.3 mg/dL mg/dL (2.5-7.5) Calcium 9.1 mg/dL mg/dL (8.4-10.2) Total Bilirubin 0.3 mg/dL mg/dL (0.2-1.3) AST 17 U/L U/L (14
[2021-06-02 06:55] LABS: Glucose Point of Care 147 mg/dl (65-105)
--- NOTE | 2021-06-02 07:12 | LDADM ---
This patient, Sue Mtz, was admitted to Labor/Delivery/Recovery 106 on 06/02/21 at 04:06. Plans for labor, pain management and were discussed with patient. Patient/family oriented to hospital policies and general routines including ID bracelet, bed and alarms, visiting hours, pain management, procedures, bathroom and other care routines, personal items, smoking policy, room service/diet and guest tray routines, security routines, and visiting hours. Patient/Family are encouraged to report perceived risks to care and to ask questions if they do not understand what they are told or what they should do. See OBIX for further documentation.
--- NOTE | 2021-06-02 07:28 | PM.IMHP ---
H&P: HPI History of Present Illness Date/Time: 06/02/21 07:28 She is at 36 weeks established by 20 week ultrasound. Unknown LMP. Patient admitted in active labor cervix dilated to 6 cm. She had previously had history of PTL and subsequent advanced cervical dilation with her cervix dilated to 5 prior to today. Contractions started regular at 2am. She did receive steroids during this with her diagnosis of labor. She also had possible clinical abruption during this which she was transferred to [facility]. She did get released. She has had a prior 34 week vaginal delivery. Fingerstick on admission was 178. PNC significant for pregestational diabetes requiring Metformin. She has a history of being noncompliant with her diabetic diet. Also mild pre-eclampsia diagnosed 05/15. She has been getting surveillance. Also AMA. No headache scotomata or RUQ pain. Labs reviewed. Blood type O neg. Chief Complaint: Contractions Review of Systems Review of Systems: All systems reviewed & are unremarkable except as noted in HPI and below Constitutional: Constitutional: Reports no additional constitutional complaints and Denies headache(s) Eyes: Eyes: Denies spots in vision ENT: Reports system reviewed and no additional complaints, except as documented and Denies headache(s) Cardiovascular: Cardiovascular: Denies chest pain and Denies dyspnea Respiratory: Respiratory: Denies dyspnea Gastrointestinal: Gastrointestinal: Reports no additional gastrointestinal complaints Genitourinary: Genitourinary: Reports amenorrhea Musculoskeletal: Musculoskeletal: Reports no additional musculoskeletal complaints Integumentary/Breasts: Skin/Breast: Denies breast mass and Denies rash Neurologic: Denies headache(s) Psychiatric: Psychiatric: Reports no additional psychiatric complaints [facility] Past Medical History Medical History Diabetes mellitus diet controlled Vaginal delivery x2 Surgical History Surgical History History of salpingo-oophorectomy 2006, left side Family History Family History Father Hypertension Mother Diabetes mellitus Hypertension Heart problem Grandparent Diabetes mellitus Hypertension Cerebrovascular accident Heart problem Social History Social History Smoking status: Current some day smoker Alcohol intake: former Substance use: never Spiritual care concerns: No Meds Home Medications and Allergies Home Medications Medication Instructions Recorded Confirmed Type docosahexaenoic acid 200 mg capsule 200 mg PO DAILY 01/23/21 06/02/21 History nifedipine 10 mg PO Q4H PRN #30 cap 05/15/21 06/02/21 Rx metformin 1,000 mg PO DAILY 05/17/21 06/02/21 History Allergies Allergy/AdvReac Type Severity Reaction Status Date / Time No Known Allergies Allergy Verified 05/28/21 10:33 Vital Signs Vital Signs - 24 hr 06/02/21 04:18 06/02/21 04:30 06/02/21 04:45 Temperature 98.4 F Pulse Rate 93 94 Blood Pressure 116/56 L 138/80 Pulse Oximetry 06/02/21 05:00 06/02/21 05:15 06/02/21 05:30 Temperature Pulse Rate 83 87 83 Blood Pressure 116/60 138/78 139/73 Pulse Oximetry 06/02/21 05:45 06/02/21 05:52 06/02/21 05:57 Temperature Pulse Rate 75 78 Blood Pressure 143/79 H 140/76 Pulse Oximetry 100 100 06/02/21 05:58 06/02/21 06:00 06/02/21 06:02 Temperature Pulse Rate 77 78 Blood Pressure 135/74 133/70 Pulse Oximetry 100 06/02/21 06:03 06/02/21 06:04 06/02/21 06:06 Temperature 98.6 F Pulse Rate 93 90 84 Blood Pressure 130/78 120/68 123/66 Pulse Oximetry 06/02/21 06:07 06/02/21 06:08 06/02/21 06:10 Temperature Pulse Rate 83 84 Blood Pressure 117/65 113/64 Pulse Oximetry 100 12
[2021-06-02] MEDS: OXYTOCIN 30 UNITS/NS 500 ML 30 UNITS/500 ML BAG 125 UNITS IV CONT (07:42)
--- NOTE | 2021-06-02 07:48 | PM.OBPRVD ---
OB - Delivery Note Procedure Delivery date: 06/02/21 Procedure: Spontaneous vaginal delivery events: Labor < 37 Weeks, Gestational Diabetes (pregestational diabetes) and Pre-Eclampsia Induction method: none Delivery monitor: external FHT Route of delivery: Episiotomy description: None Laceration Description: None Specimen: Yes (placenta and cord, cord blood and cord gases) Quantitative Blood Loss (ml): 150 Anesthesia type: Epidural Disposition: floor Complications: None Narrative: Patient admitted in active labor. 6cm. Blood sugars elevated on admission and insulin administered and insulin drip started. On admission FHT 150s, cat 2 tracing with mild late decelerations. Tracing improved with oxygen administration. She requested epidural which was placed at approximately 0600. She had SROM small leaking clear at 0617. She started having late decelerations, cervix checked and she was 8.5/90%. She also had decreased variability. Oxygen administered. At 0657 assisted rupture the forebag and thick meconium noted. Cervix 9/90/0. She was then progressed to complete. She delivered . Nose mouth suctioned with bulb. Infant handed to nursery staff present in room. Placenta delivered spontaneously intact. [place] Baby Date of : 06/02/21 Time of : 07:14 Weeks of gestation at delivery: 36 Infant gender: Female Weight (pounds): 6 Weight (ounces): 10 presentation: vertex position: Right Occiput Anterior Placenta delivery description: Spontaneous score one minute: 5 score five minutes: 8
--- NOTE | 2021-06-02 10:34 | PC.NURSE ---
Patient transferred to post room #290 per wheelchair. Support person present. Oriented to unit, room, information board, rooming in, admission packet and security measures. Patient verbalizes understanding.
[2021-06-02 10:51] LABS: Glucose Point of Care 241 mg/dl (65-105)
[2021-06-02] MEDS: ACETAMINOPHEN 325 MG TABLET 650 MG PO ×3 (11:13→23:52)
[2021-06-02] MEDS: metFORMIN HCL 500 MG TABLET 1000 MG PO (11:15)
[2021-06-02] MEDS: IBUPROFEN 600 MG TABLET PO ×3 (11:16→23:52)
[2021-06-02 20:09] LABS: Glucose Point of Care 179 mg/dl (65-105)
[2021-06-02] MEDS: metFORMIN HCL 500 MG TABLET PO (21:09)
[2021-06-03 04:10] VITALS: BP 150/72; PULSE 51; RESP 16; TEMP 36.4
[2021-06-03 04:28] LABS: Hematocrit 28.8 % (37.0-47.0); Hemoglobin 9.2 g/dL (12.0-15.0)
[2021-06-03 07:30] VITALS: BP 135/80; PULSE 60; RESP 18; TEMP 36.5; O2SAT 99
[2021-06-03 07:40] LABS: Glucose Point of Care 78 mg/dl (65-105)
[2021-06-03] MEDS: metFORMIN HCL 500 MG TABLET 1000 MG PO (07:58)
[2021-06-03] MEDS: DOCUSATE SODIUM 100 MG CAPSULE PO ×2 (07:58→16:34)
[2021-06-03] MEDS: POLYSACCHARIDE IRON COMPLEX 150 MG CAPSULE (07:58)
[2021-06-03] MEDS: IBUPROFEN 600 MG TABLET PO ×3 (07:59→22:31)
[2021-06-03] MEDS: ACETAMINOPHEN 325 MG TABLET 650 MG PO ×2 (08:01→16:35)
--- NOTE | 2021-06-03 09:25 | WPDANLDPN2 ---
Anes-Prog Note L&D Date/Time: 06/03/21 09:25 Comfortable throughout: labor and delivery Neuraxial method: epidural Epidural/Spinal procedure site: clean & non-tender Neuro status: Neuro function grossly intact. Cardiovascular status: normal Respiratory status: normal Airway patency: baseline Mental status: baseline Post-Op hydration status: normal Vital Signs: Last Vital Signs Temp 36.5 C 06/03/21 07:30 Pulse 60 06/03/21 07:30 Resp 18 06/03/21 07:30 BP 135/80 06/03/21 07:30 Pulse Ox 99 06/03/21 07:30 Pain score (VAS): 0 I/O: Intake & Output 06/02/21 06/03/21 06/03/21 23:59 07:59 15:59 Intake Total 760 Output Total 1700 Balance -940 Post-procedural complaints: none Patient feedback: Patient satisfied with anesthetic care.
[2021-06-03 09:27] LABS: Glucose Point of Care 183 mg/dl (65-105)
--- NOTE | 2021-06-03 09:53 | P.PNOB_ITS ---
OB - PN: Subj Subjective Date/time seen: 06/03/21 09:53 She denies headache scotomata or RUQ pain. She states that she had back pain at epidural site and thinks this was contributing to the increase blood pressure. Medications do help the back pain. Patient comments: pain well controlled, tolerating diet and other (Decreasing lochia.) [place] baby status: doing well OB - PN: Obj Data Labs CBC & Chem 7: 06/03/21 04:14 06/02/21 05:11 Labs: Laboratory Results - last 24 hr 06/02/21 06/02/21 06/02/21 04:46 10:48 20:06 Hgb Hct POC Capillary Glucose 241 H 179 H Antibody Identification Passive Due to RH Imm Glob Antigen Identification Cancelled 06/03/21 06/03/21 06/03/21 04:14 07:35 09:23 Hgb 9.2 L Hct 28.8 L POC Capillary Glucose 78 183 H Antibody Identification Antigen Identification OB - PN A/P Assessment and Plan (1) Pregestational diabetes mellitus, modified White class B: Code(s): O24.319 - Unspecified pre-existing diabetes mellitus in , unspecified trimester Status: Acute Assessment and Plan: Blood sugars labile. Continue metformin. (2) Pre-eclampsia affecting childbirth: Code(s): O14.94 - Unspecified pre-eclampsia, complicating childbirth Status: Acute Assessment and Plan: Elevated blood pressures yesterday. No pre-e symptoms. Will check pre-e labs. Discussed with her that if blood pressures persist elevated then she may need medication. Plan day: 1 Plan: routine care Comments: Routine post care. Time Spent With Patient Time: Total time spent is greater than 50% in coordination of care (as documented) at patient's floor/unit and/or counseling patient: Exam Const: General: comfortable and no acute distress Eyes: General: appearance normal, both eyes and all related structures Resp: Effort & Inspection: normal respiratory effort Psych: Affect: normal affect Other: Abd: fundus firm below umbilicus, nontender, No RUQ pain Ext: nontender no edema
[2021-06-03 10:11] LABS: Basophils Percent Auto 0.2 % (0.2-1.2); Eosinophils Absolute Auto 0.2 K/mm3 (0-0.3); Eosinophils Percent Auto 1.9 % (0-4.4); Hematocrit 30.8 % (37.0-47.0); Hemoglobin 9.9 g/dL (12.0-15.0); Immature Granulocyte Absolute 0.03 K/mm3 (0.00-0.031); Immature Granulocyte Percent A 0.3 % (0-0.5); Lymphocytes Absolute Auto 1.46 K/mm3 (0.9-3.2); Lymphocytes Percent Auto 16.1 % (18.3-44.2); Mean Corpuscular HGB Conc 32.1 g/dl (32-36); Mean Corpuscular Volume 83.9 fl (80-100); Mean Platelet Volume 11.9 fl (7.4-10.4); Monocytes Absolute Auto 0.6 K/mm3 (0.1-0.6); Monocytes Percent Auto 6.2 % (2.6-8.5); Neutrophils Absolute Auto 6.8 K/mm3 (1.3-6.7); Neutrophils Percent Auto 75.3 % (45.5-73.1); Platelet Count Result 148 k/mm3 (150-375); Red Blood Count 3.67 M/mm3 (4.2-5.4); Red Cell Distribution Width 14.3 % (11.5-14.5); White Blood Count 9.1 K/mm3 (4.5-10.0)
[2021-06-03 10:19] LABS: Alanine Aminotransferase 11 U/L (4-35); Albumin Level 3.2 g/dL (3.5-5.1); Alkaline Phosphatase 115 U/L (38-126); Anion Gap 5 mmol/L (8-16); Aspartate Amino Transferase 20 U/L (14-36); Bilirubin,Total 0.2 mg/dL (0.2-1.3); Blood Urea Nitrogen 7 mg/dL (7-17); Calcium 8.7 mg/dL (8.4-10.2); Carbon Dioxide 22 mmol/L (22-30); Chloride 102 mmol/L (98-107); Estimated CRCL calculation 103 ml/min; Estimated Glomerular Filt Rate > 60; Glucose 147 mg/dL (65-110); Potassium 4.1 mmol/L (3.4-5.0); Sodium 129 mmol/L (137-145); Uric Acid 3.7 mg/dL (2.5-7.5)
[2021-06-03 12:44] VITALS: BP 132/70; PULSE 67; RESP 16; TEMP 36.9; O2SAT 98
[2021-06-03 13:26] LABS: Rapid Plasma Reagin Non-Reactive (NonReactive)
[2021-06-03 13:55] LABS: Total Protein Urine Random 29 mg/dL; Ur Ttl Prot Creatinine Ratio 0.58 mg/mg (0-0.20)
[2021-06-03 14:30] LABS: Glucose Point of Care 96 mg/dl (65-105)
[2021-06-03] MEDS: BENZOCAINE 20% AER SPR (*SP) 56 GM CAN 1 SPRAY TOPICAL (16:34)
[2021-06-03] MEDS: WITCH HAZEL 40 PADS 1 PAD TOPICAL (16:34)
[2021-06-03] MEDS: POLYSACCHARIDE IRON COMPLEX 150 MG CAPSULE PO (16:35)
[2021-06-03 17:00] VITALS: BP 136/75; PULSE 90; RESP 18; TEMP 36.7
[2021-06-03] MEDS: metFORMIN HCL 500 MG TABLET PO (17:20)
[2021-06-03 19:44] LABS: Glucose Point of Care 178 mg/dl (65-105)
[2021-06-03 20:00] VITALS: BP 142/84; PULSE 66; RESP 18; TEMP 36.6; O2SAT 100
[2021-06-04] VITALS: BP 120/61
[2021-06-04 05:21] VITALS: BP 136/83
[2021-06-04 07:40] VITALS: BP 136/74; PULSE 70; RESP 18; TEMP 36.8; O2SAT 98
[2021-06-04 07:50] LABS: Glucose Point of Care 85 mg/dl (65-105)
[2021-06-04] MEDS: DOCUSATE SODIUM 100 MG CAPSULE PO (08:47)
[2021-06-04] MEDS: POLYSACCHARIDE IRON COMPLEX 150 MG CAPSULE PO (08:47)
[2021-06-04] MEDS: metFORMIN HCL 500 MG TABLET 1000 MG PO (08:48)
[2021-06-04] MEDS: ACETAMINOPHEN 325 MG TABLET 650 MG PO (08:48)
[2021-06-04] MEDS: IBUPROFEN 600 MG TABLET PO (08:48)
--- NOTE | 2021-06-04 10:21 | P.PNOB_ITS ---
OB - PN: Subj Subjective Date/time seen: 06/04/21 10:21 Patient doing well this morning. Reports occasional cramping. Minimal lochia. Denies any headache, chest pain, shortness of breath, visual disturbances, or specific right upper quadrant tenderness. Ambulating without difficulty. No urinary complaints. OB - PN: Obj Data Labs CBC & Chem 7: 06/03/21 10:02 06/03/21 10:02 Labs: Laboratory Results - last 24 hr 06/02/21 06/03/21 06/03/21 04:46 10:00 10:02 WBC 9.1 RBC 3.67 L Hgb 9.9 L Hct 30.8 L MCV 83.9 MCH 27.0 MCHC 32.1 RDW 14.3 Plt Count 148 L MPV 11.9 H Immature Gran % (Auto) 0.3 Neut % (Auto) 75.3 H Lymph % (Auto) 16.1 L Moore % (Auto) 6.2 Eos % (Auto) 1.9 Baso % (Auto) 0.2 Lymph # (Auto) 1.46 Moore # (Auto) 0.6 Eos # (Auto) 0.2 Baso # (Auto) 0.0 Abs Immat Gran (auto) 0.03 Absolute Neuts (auto) 6.8 H Absolute Nucleated RBC 0.0 Nucleated RBC % 0.0 POC Capillary Glucose U Random Total Protein 29 Urine Creatinine 50.0 Protein/Creat Ratio 2 0.58 H RPR Non-reactive 06/03/21 06/03/21 06/04/21 14:27 19:38 07:46 WBC RBC Hgb Hct MCV MCH MCHC RDW Plt Count MPV Immature Gran % (Auto) Neut % (Auto) Lymph % (Auto) Moore % (Auto) Eos % (Auto) Baso % (Auto) Lymph # (Auto) Moore # (Auto) Eos # (Auto) Baso # (Auto) Abs Immat Gran (auto) Absolute Neuts (auto) Absolute Nucleated RBC Nucleated RBC % POC Capillary Glucose 96 178 H 85 U Random Total Protein Urine Creatinine Protein/Creat Ratio 2 RPR OB - PN A/P Assessment and Plan (1) Normal spontaneous vaginal delivery: Code(s): O80 - Encounter for full-term uncomplicated delivery Status: Acute Assessment and Plan: PPD#2 doing well continue routine care discharge home in stable condition emergency precautions reviewed Time Spent With Patient Time: Total time spent is greater than 50% in coordination of care (as documented) at patient's floor/unit and/or counseling patient: Exam Const: General: cooperative, healthy appearing, comfortable and no acute distress GI: Inspection: non-distended GI Palp: Yes Soft to palpation and No Tenderness to palpation present (GI) Other: fundus firm below umbilicus Extrem: Right lower extremity: no edema Left lower extremity: no edema Other: no calf tenderness
--- NOTE | 2021-06-04 10:25 | PM.OBDSVD ---
DS: Admitting Diagnosis Discharge Date 06/04/21 Admitting Diagnosis Labor OB - DS: Summary OB Procedures : PIH Mgmt and PTL Mgmt OB Procedures Intrapartum: Spontaneous Vag Delivery OB Procedures: : None Time Spent with Patient Time attestation: Total time spent providing and/or coordinating discharge services: DS: Data Data Completed and Pending Pending studies at discharge: Pending at discharge 06/02/21 08:59 Surgical [PTH] Routine Labs on day of discharge: Labs from last 24 hours 06/04/21 06/03/21 06/03/21 07:46 19:38 14:27 POC Capillary Glucose 85 178 H 96 U Random Total Protein Urine Creatinine Protein/Creat Ratio 2 RPR 06/03/21 06/02/21 10:00 04:46 POC Capillary Glucose U Random Total Protein 29 Urine Creatinine 50.0 Protein/Creat Ratio 2 0.58 H RPR Non-reactive Discharge Plan Discharge Attending physician on discharge: Gabriela Segal Discharging Clinician: Gabriela Segal Anticipated Discharge Date/Time: 06/04/21 10:25 Patient Disposition: Home, Self-Care Activity: as tolerated and pelvic rest Diet: diabetic Discharge Instructions: Call office ([phone]) to schedule the following appointments: 1. Blood pressure check in 1 week 2. visit in 4-6 weeks. You may take Ibuprofen 600mg every 6 hours as needed for pain. Pain medication may make you constipated. It may be helpful to take an exsj-cqo-ypzchhi stool softener, such as Colace and/or Senokot, along with the pain medication to help lessen constipation. Call office or go to ED for pain not controlled with medication, headache, chest pain, shortness of breath, fever, chills, persistent nausea or vomiting, severe abdominal pain, heavy vaginal bleeding >2 pads/hour, foul vaginal discharge or odor, or problems with your breasts. Patient Instructions: Antibiotic Form Stand Alone Forms: General Discharge Information Follow-up/Referrals: Jovana Geiger MD [Physician] - Discharge Medications: Continued DHA 200 mg capsule 200 mg PO DAILY RF: 0 metformin 500 mg tablet 1,000 mg PO DAILY RF: 0 Discontinued nifedipine 10 mg Capsule 10 mg PO Q4H PRN (Reason: Cramps) Qty: 30 RF: 0 Date of admission: 06/02/21 04:06 Primary Care Provider: PHYSICIAN,STRINGED INSTRUMENT TUNER Admitting Provider: Jovana Geiger Attending physician on admission: Jovana Geiger Condition: Stable
--- NOTE | 2021-06-04 11:19 | PC.NURSE ---
Patient discharged, she is moving downstairs to room 114. Baby is still under the care of the Level 2 nursery. Mom has been discharged but is moving downstairs to be closer to baby.
[2021-06-04 11:40] VITALS: BP 126/87; PULSE 85; RESP 16; TEMP 37.4; O2SAT 99
[2021-06-05 15:01] VITALS: BP 131/85; PULSE 87; RESP 20; TEMP 37.1; O2SAT 98
== END 2021-06-04 11:19 | disposition home or self-care (01) | DRG 560 ==
LOC: ANHLDR 04:24 → ANHOB2 06-04 10:26 → ANHLDR 06-05 10:27 → ANHOB2 06-05 10:27
PROVIDERS: Obstetrics & Gynecology; Admitting Provider Obstetrics & Gynecology; Visit Provider Student in an Organized Health Care Education/Training Program
DX: O60.14X0 Preterm labor third trimester with preterm delivery third trimester, not applicable or unspecified (principal); O99.334 Smoking (tobacco) complicating childbirth; F17.210 Nicotine dependence, cigarettes, uncomplicated; O24.425 Gestational diabetes mellitus in childbirth, controlled by oral hypoglycemic drugs; O14.04 Mild to moderate pre-eclampsia, complicating childbirth; O76 Abnormality in fetal heart rate and rhythm complicating labor and delivery; O77.0 Labor and delivery complicated by meconium in amniotic fluid; O13.4 Gestational [pregnancy-induced] hypertension without significant proteinuria, complicating childbirth; O99.824 Streptococcus B carrier state complicating childbirth; Z3A.36 36 weeks gestation of pregnancy; Z37.0 Single live birth
CPT/HCPCS: 36415; 80053; 80307; 82570; 82948; 84156; 84550; 85014; 85018; 85025; 86592; 86850; 86880; 86900; 86901; 86902; 88307; A9270; J0290; J1815; J2590; J2795; J7120; J7121